=== PATIENT | female | born 1945 | race Caucasian/White ===

== ENCOUNTER → 2019-08-03 | Outpatient (CLI) | payer MEDICARE | LOC: WI 10:30 | PROVIDERS: ATTEND Family Medicine | DX: Z12.31 Encounter for screening mammogram for malignant neoplasm of breast (principal) | CPT/HCPCS: 77067 ==

== ENCOUNTER → 2020-07-07 | Outpatient (CLI) | payer MEDICARE ==
--- NOTE | 2020-07-08 17:41 | RADIOLOGY REPORT (SQ) ---
EXAM DESCRIPTION: MRI LUMBAR SPINE WITHOUT IMAGES COMPLETED DATE/TIME: 07/07/2020 10:09 am REASON FOR STUDY: M54.5 LOW BACK PAIN M54.5 LOW BACK PAIN COMPARISON: None. TECHNIQUE: Sagittal and Axial imaging includes T1, T2, STIR and gradient echo sequences. Coronal T2/ HASTE imaging. LIMITATIONS: None. FINDINGS: VISUALIZED UPPER ABDOMEN: Limited evaluation. No acute or suspicious findings suggested. SEGMENTATION: No transitional anatomy. The lowest well-developed disc space is labeled L5-S1. ALIGNMENT: Scoliosis convex left. Degenerative anterolisthesis L4 on L5. VERTEBRAE: Intact. BONE MARROW: Mild reactive endplate changes L2-3, L3-4, L4-5. DISC SIGNAL: Loss of T2 signal sparing L1-2. Loss of height L2-3, L3-4, L4-5. POSTERIOR ELEMENTS: Generally intact. No pars defect evident. HARDWARE: None in the spine. CORD AND CONUS: Normal in size and signal intensity. Conus at the appropriate level. SOFT TISSUES: No aortic aneurysm seen. No bulky retroperitoneal adenopathy or mass. No paraspinal mas s or fluid. L1-L2: No significant spinal stenosis or exit foraminal stenosis. L2-L3: Broad-based bulge. Mild posterior element overgrowth with fluid in the facets. Mild narrowin g of the exit foramina left greater than right. L3-L4: Broad-based bulge. Ligamentous and facet hypertrophy. Moderate narrowing of the exit foramin a and central canal stenosis. L4-L5: Broad-based bulge. Facet ligamentous hypertrophy with lateral recess narrowing. Mild narrowi ng of the exit foramina left greater than right. Moderate central canal stenosis. L5-S1: Large ganglion cyst arising from the right facet. Extends centrally causing marked compressio n and leftward deviation of the thecal sac. Left facet overgrowth. Mild deviation of the exiting le ft L5 root. Marked canal stenosis related to the ganglion cyst. LOWER THORACIC: Incompletely imaged. No stenosis seen. SACRUM: Visualized upper sacrum intact. OTHER: No other significant findings. IMPRESSION: Multilevel spondylosis. Most marked findings at L5-S1 for there is a large ganglion cys t arising from the right facet extending centrally causing marked compression and leftward deviation of the thecal sac. Left facet overgrowth which results in mild deviation of the exiting left L5 root . TECHNICAL DOCUMENTATION: JOB ID: [id number] [employer]- All Rights Reserved Reading location - IP/workstation name: [id number]
== END ==
LOC: RAD 08:56
PROVIDERS: ATTEND Physician Assistant
DX: M54.5 Low back pain (principal)
CPT/HCPCS: 72148